=== PATIENT | male | born 1940 | race Caucasian/White ===

== ENCOUNTER → 2018-07-03 | Day surgery (SDC) | payer OTHER ==
[~2018-07-03] MED LIST: ADULT LOW DOSE81 MG PO; APAP650 PO; ASPIR 8181 MG PO; AUGMENTIN 875875 MG PO; CENTRUM SILVER1 EAC4 PO; CIPROFLOXACIN500 M1 PO; DIABETA 5MG TABL5 MG PO; FIBER GUMMIES2.5 GM PO; FISH OIL 1,0001 EAC8 PO; FISH OIL 1,001000 M2 PO; GLIPIZIDE ER5 MG PO; GLUCOTROL5 MG PO; HYDROCHLOROTH12.5 M1 PO; LISINOPRIL-HCT1 EACH PO; LISINOPRIL10 MG PO; METFORMIN HCL500 MG PO; MOBIC15 MG PO; NEURONTIN300 MG PO; NORCO 5-325 TA1 EACH PO; OCUVITE TABLET1 EAC1 PO; PRADAXA150 MG PO; SIMVASTATIN40 MG PO; TAMSULOSIN HCL0.4 MG PO; TOPROL XL100 MG PO; TRANSDERM-SCO1 PATC1 TD
--- NOTE | ~2018-07-03 | PROC ---
[address] [address] PROCEDURE REPORT Name: SAMARIA DONALD Room: [facility]#: [id number] Admission: 07/03/18 Attend Phys: Sheldon Gautam DO Discharge: Date of : 42 Report #: [id number] THIS REPORT FOR: //name// For GI report, please see the Provation report in Perceptive 7 content. By: 0636Medical Records Staff [facility] /DARRELL
[2018-07-03 08:17] LABS: HEMATOCRIT 45.5 % (42.0-52.0); HEMOGLOBIN 15.1 gm/dL (14.0-18.0); MCH 30.1 pg (26.0-34.0); MCHC 33.2 g/dL (28.0-37.0); MCV 90.5 fL (80.0-100.0); MPV 7.8 fl. (7.2-11.1); RBC 5.03 mil/uL (4.50-6.00); RDW-CV 13.1 % (10.5-14.5); WBC 7.5 thou/uL (4.0-11.0)
[2018-07-03 08:30] LABS: ALBUMIN 3.7 g/dL (3.4-5.0); CALCIUM 9.3 mg/dL (8.5-10.1); CREATININE 1.1 mg/dL (0.6-1.3); POTASSIUM 4.2 mmol/L (3.5-5.1); TOTAL BILIRUBIN 0.6 mg/dL (<0.1-1.0); TOTAL PROTEIN 7.6 g/dL (6.4-8.2)
--- NOTE | 2018-07-03 15:35 | EKG ---
[place] [address] ELECTROCARDIOGRAM REPORT Name: SAMARIA DONALD Room: [facility]#: [id number] Admission: 07/03/18 Attend Phys: Sheldon Gautam DO Discharge: Date of : 42 Report #: [id number] THIS REPORT FOR: //name// [facility] Test Date: 2018-07-03 Test Time: 08:34:10 Pat Name: SAMARIA DONALD Department: Room: Gender: M Funeral Assistant: : 1940 Requested By: Sheldon Gautam Order Number: [id number] Brad MD: Mandeep Wilson Measurements Intervals [place] Rate: 75 P: 17 ID: [id number] QRS: -68 QRSD: 124 T: 72 QT: 398 QTc: 445 Interpretive Statements Atrial-sensed ventricular-paced rhythm No further analysis attempted due to paced rhythm Compared to ECG 05/22/2014 13:56:08 Atrial-paced complex(es) or rhythm no longer present ventricular paced beats noted Electronically Signed On 07-03-2018 15:35:33 CDT by Mandeep Wilson [email or web address] <ELECTRONICALLY SIGNED> By: Mandeep Wilson MD, FACC 07/03/18 1535 0834 0834 Mandeep Wilson MD, [facility] /EPI
--- NOTE | 2018-07-08 11:06 | PATH ---
[facility] [address] [place] [address] PATHOLOGY RPT PROCEDURE Name: SAMARIA DONALD Room: [facility] Jorge.#: [id number] Admission: 07/03/18 Date of : 42 Discharge: Report #: [id number] Path Case #: [id number] [facility] Accession Number: [id number] . 01 Material submitted: . PART A: CECUM POLYPS PART B: DISTAL TRANSVERSE COLON POLYP . 01 Clinical history: . Personal hx colon polyps . 02 Diagnosis: A. Cecum polyps: - Two tubular adenomas, negative for high grade dysplasia. . B. Transverse (distal) colon polyp: - Tubular adenoma, negative for high grade dysplasia. (ELBA/db; 07/05/2018) LBQ/07/08/2018 . 02 Electronically signed: . Sourav Negron MD, Pathologist NPI- [id number] . 01 Gross description: . A. Received in formalin labeled "Samaria Donald, cecum polyps," are two segments of pale wilson soft tissue measuring 0.3 x 0.3 x 0.2 cm and 0.4 x 0.2 x 0.2 cm in greatest dimensions. The specimen is submitted entirely in cassette A1. . B. Received in formalin labeled "Samaria Donald, transverse colon polyp," is a segment of wilson-brown soft tissue measuring 0.5 x 0.4 x 0.3 cm in greatest dimensions admixed with yellow-green possible vegetative material. The surgical margin is inked, and the specimen is bisected and submitted entirely in cassette B1. (DAC; 07/04/2018) XDC/XDC . 02 Pathologist provided ICD-10: D12.0, D12.3 . 02 CPT . 282986, 808300 Specimen Comment: A courtesy copy of this report has been sent to Specimen Comment: [phone], . Specimen Comment: Report sent to / DR CLARK Performed at: [address] [place] [address] PATHOLOGY RPT PROCEDURE Name: SAMARIA DONALD Room: [facility]#: [id number] Admission: 07/03/18 Date of : 42 Discharge: Report #: [id number] Path Case #: [id number] [address] [facility] [address], [place] [id number] MD Apolinar Santo MD Phone: [phone] Performed at: 02 [facility] [address], [place], [place] [id number] MD Sourav Negron MD Phone: [phone]
== END | disposition home or self-care (01) ==
LOC: M.SUR 06:31
PROVIDERS: Internal Medicine Gastroenterology
DX: Z12.11 Encounter for screening for malignant neoplasm of colon (principal); Z86.010 Personal history of colon polyps; D12.0 Benign neoplasm of cecum; D12.3 Benign neoplasm of transverse colon; K57.30 Diverticulosis of large intestine without perforation or abscess without bleeding; K64.8 Other hemorrhoids; I10 Essential (primary) hypertension; I48.91 Unspecified atrial fibrillation; E11.9 Type 2 diabetes mellitus without complications; I25.10 Atherosclerotic heart disease of native coronary artery without angina pectoris; E78.5 Hyperlipidemia, unspecified; K21.9 Gastro-esophageal reflux disease without esophagitis; E66.09 Other obesity due to excess calories; Z95.0 Presence of cardiac pacemaker; Z88.8 Allergy status to other drugs, medicaments and biological substances; Z86.73 Personal history of transient ischemic attack (TIA), and cerebral infarction without residual deficits; Z87.442 Personal history of urinary calculi; Z79.01 Long term (current) use of anticoagulants

== ENCOUNTER → 2019-06-19 | Outpatient (CLI) | payer MEDICARE ==
[~2019-06-19] MED LIST changes: +ACTOS 30 MG TAB30 M1 PO; +B COMPLEX1 EACH PO; +GLIPIZIDE 10 MG10 MG PO
== END ==
LOC: M.CT 10:00
DX: M19.011 Primary osteoarthritis, right shoulder (principal); M25.411 Effusion, right shoulder

== ENCOUNTER 2019-06-30 06:26 | Observation (INO) | payer MEDICARE ==
[2019-06-19 08:54] LABS: ABSOLUTE EOSINOPHILS 0.1 thou/uL (0.0-0.7); ABSOLUTE LYMPHOCYTES 2.3 thou/uL (0.8-5.3); ABSOLUTE MONOCYTES 0.4 thou/uL (0.0-1.2); BASOPHILS 0.5 %; EOSINOPHILS 1.5 %; HEMATOCRIT 41.7 % (42.0-52.0); HEMOGLOBIN 14.3 gm/dL (14.0-18.0); MCH 30.6 pg (26.0-34.0); MCHC 34.3 g/dL (28.0-37.0); MCV 89.1 fL (80.0-100.0); MONOCYTES 7.7 %; MPV 7.6 fl. (7.2-11.1); NUCLEATED RBCS 0 /100WBC; PLATELET COUNT* 192 thou/uL (150-400); POLYS 51.3 %; RBC 4.68 mil/uL (4.50-6.00); RDW-CV 13.3 % (10.5-14.5); WBC 5.8 thou/uL (4.0-11.0)
[2019-06-19 09:02] LABS: APTT 44.6 Seconds (25.0-31.3); INR 1.2; PROTIME 12.7 Seconds (9.20-11.50)
[2019-06-19 09:06] LABS: ALBUMIN 3.9 g/dL (3.4-5.0); CALCIUM 9.2 mg/dL (8.5-10.1); CREATININE 1.2 mg/dL (0.6-1.3); POTASSIUM 3.8 mmol/L (3.5-5.1); TOTAL BILIRUBIN 0.5 mg/dL (<0.1-1.0); TOTAL PROTEIN 7.6 g/dL (6.4-8.2)
[2019-06-19 10:57] LABS: ESR (SEDRATE) 10 mm/hr (0-20)
[~2019-06-30] VITALS: Ht 170.2 cm; Wt 106.6 kg
--- NOTE | ~2019-06-30 | OP ---
[address] [address] OPERATIVE REPORT Name: SAMARIA DONALD Room: [address] Harjeet Vasquez#: [id number] Admission: 06/30/19 Attend Phys: Angelica Freed Discharge: Date of : 42 Report #: [id number] THIS REPORT FOR: //name// cc: Rico Saul MD, Ryan L. MD ~ THIS REPORT FOR: //name// CC: Rolf Marie DICTATED BY: Tyrone Barriga DO DATE OF SERVICE: 06/30/2019 PREOPERATIVE DIAGNOSIS: Right shoulder advanced glenohumeral degenerative joint disease. POSTOPERATIVE DIAGNOSIS: Right shoulder advanced glenohumeral degenerative joint disease. SURGERY PERFORMED: Right anatomic total shoulder arthroplasty. SURGEON: Rolf Groves DO. PRECISION MILLWRIGHT: Tyrone Barriga DO. SECOND PREP MANAGER: Heron Paz DO. ANESTHESIA: General with interscalene block. ESTIMATED BLOOD LOSS: 300 mL. COMPLICATIONS: None. CONDITION: Stable to PACU. ORTHOPEDIC IMPLANTS: Biomet anatomic total shoulder system was utilized with the following components: 1. A 13-mm mini humeral stem. 2. Size medium hybrid glenoid base with a porous titanium glenoid post. 3. A 46-mm modular variable offset head. INDICATIONS FOR PROCEDURE: The patient is a pleasant 79-year-old male who has been followed [facility] regarding longstanding right shoulder pain. X-rays have been consistent with a diagnosis of primary glenohumeral [address] [place] [address] OPERATIVE REPORT Name: SAMARIA DONALD Radha Room: [address] Pedro#: [id number] Admission: 06/30/19 Attend Phys: Angelica Freed Discharge: Date of : 42 Report #: [id number] arthritis. He has tried and failed conservative care consisting of NSAIDs, corticosteroids, activity modifications and home exercises. He has had continued symptoms that have adversely affected his quality of life. We discussed further treatment including total shoulder replacement. Risks, benefits, complications and alternatives were discussed with the patient about that procedure in detail. Risks include but are not limited to bleeding, DVT/PE, infection, instability/dislocation, periprosthetic fracture, continued shoulder pain, need for repeat surgery, complication with anesthesia and even . The patient expressed understanding and wished to proceed. DESCRIPTION OF PROCEDURE: The patient was transferred to the operating suite and placed on the operating table. He was given the benefit of general anesthesia. He was then placed into beach chair position and the right shoulder and upper extremity were prepped and draped in the usual sterile fashion. A timeout was taken to confirm the appropriate patient identification, operative site and procedure to be performed. All in the room were in agreement with time-out. Procedure began by performing a skin incision overlying the deltopectoral interval. The dissection was then carried down with electrocautery for hemostasis. The cephalic vein was identified and thus our appropriate interval between the deltoid and the pectoralis major. Blunt dissection was used to dissect and lyse adhesions in the subdeltoid space. Retractors were then placed under the deltoid and over the conjoined tendon. Care was taken to retract aggressively to protect neurovascular structures. The bicipital groove was then identified and was followed into the glenohumeral joint. We then used electrocautery to perform a subscapularis tenotomy while leaving a 1 cm cuff of tissue attached to the lesser tuberosity for later repair. The humerus was then externally rotated while the subscapularis tendon was released in a subperiosteal fashion off the medial humerus. There was noted to be a large osteophyte off the inferior aspect of the humeral head. Further releases were performed until the humeral head was exposed and the shoulder was dislocated. We then marked our appropriate entry point at the proximal aspect of the humerus into the humeral canal. The humeral canal was then sequentially reamed to appropriate size. Off the final reamer, the cutting block was pinned into place at 45 degrees of inclination and 40 degrees of retroversion. The cutting block was pinned into position and the humeral cut was performed through the cutting block. The humeral canal was then further prepared by sequentially broaching to the appropriate size humeral stem. Final 13 mm stem was then impacted. Attention was then addressed to the glenoid where further releases and soft tissue debridement were performed to allow for adequate exposure of the glenoid. The remainder of the biceps stump and the glenoid labrum were debrided. The glenoid was then marked for appropriate entry point for our guidepin. The guidepin was then inserted through the glenoid guide to the appropriate depth. The glenoid was then reamed and drilled over the guidepin. The [address] [address] OPERATIVE REPORT Name: SAMARIA DONALD Room: [address] Harjeet Vasquez#: [id number] Admission: 06/30/19 Attend Phys: Erick VasquezAngelica Ram Discharge: Date of : 42 Report #: [id number] trial baseplate was then placed and peg holes were drilled. Trial glenoid was then inserted and was found to fit nicely and flushed on the glenoid. At this point, the cement was then prepared on the back table, our pegs were cemented and cement was also applied to the backside of the final glenoid implant. The final glenoid implant was then malleted into position and held with compression while the cement hardened. Attention was then addressed back to the humerus where the humerus was exposed and the trial humeral head was placed. Trial reduction was performed. The shoulder was taken through range of motion with the trial humeral head in place, there was noted to be appropriate tensioning on our soft tissue structures including the conjoined tendon. There was appropriate excursion of the humeral head on the glenoid. The patient demonstrated good range of motion. The final humeral head was then impacted into position. Topical vancomycin powder was applied and the shoulder was thoroughly irrigated. Final reduction was performed. The shoulder was again taken through range of motion and was found to be stable with appropriate excursion of the humerus within the glenoid. There was also appropriate tensioning on the soft tissues including the conjoined tendon. Topical TXA was applied and allowed to set for 5 minutes. The subscapularis tendon was then repaired using #2 FiberWire in a [id number] interrupted fashion. The medial portion of the tendon was sewed down to the intact cuff of tissue remaining on the lesser tuberosity to its anatomic location. Once multiple stitches with the #[address], it was then oversewn using a running #1 Vicryl. The deltopectoral fascia was then closed using interrupted [id number] suture, #1 Vicryl. The subcutaneous tissue was then closed using 2-0 Monocryl in inverted fashion. Final skin closure was performed using a running subcuticular 3-0 Stratafix followed by skin glue. Sterile dressings were applied and the patient was placed into a slingshot immobilizer. At the end of the procedure, needle and sponge counts were correct x 2. The patient was transferred to PACU in stable condition. ATTESTATION: Dr. Groves was present and scrubbed in through the entirety of the procedure. By: [id number] Groves DO /emerald
[2019-06-30 07:26] LABS: INR 1.1; PROTIME 10.9 Seconds (9.20-11.50)
[2019-06-30 17:30] VITALS: BP 133/73
--- NOTE | 2019-06-30 18:29 | NUR ---
PATIENT ADMITTED TO ROOM 315 FROM PACU. RIGHT SHOULDER DRESSING INTACT, ICE PACK IN PLACE AND RIGHT UE IMMOBILIZER IN PLACE. PATIENT DID HAVE AN INTERSCALING BLOCK TO RIGHT SHOULDER, PATIENT STATED HE HAD NO FEELING AT THIS TIME EXCEPT FOR THUMB. PATIENT ABLE TO MOVE FINGERS AND HAND, GOOD CAP REFILL. IV SL, SCHED ABX INFUSING. [address], VITALS STABLE CHARTED. PATIENT TO BRING HOME PRADAXA AND PATIENT TO START TONIGHT ORDERED BY DR. BAIG. SCD'S IN PLACE. PATIENT HAS NOT YET VOIDED. CALL LIGHT WITHIN REACH, WILL CONTINUE TO MONITOR.
[2019-06-30 23:56] VITALS: BP 152/86
[2019-07-01 04:30] VITALS: BP 116/62
[2019-07-01 05:43] LABS: HEMATOCRIT 37.2 % (42.0-52.0); HEMOGLOBIN 12.6 gm/dL (14.0-18.0); MCH 30.4 pg (26.0-34.0); MCHC 33.9 g/dL (28.0-37.0); MCV 89.6 fL (80.0-100.0); MPV 7.7 fl. (7.2-11.1); RBC 4.15 mil/uL (4.50-6.00); RDW-CV 13.3 % (10.5-14.5); WBC 11.6 thou/uL (4.0-11.0)
[2019-07-01 06:02] LABS: ALBUMIN 3.2 g/dL (3.4-5.0); CALCIUM 8.2 mg/dL (8.5-10.1); CREATININE 1.3 mg/dL (0.6-1.3); POTASSIUM 4.3 mmol/L (3.5-5.1); TOTAL BILIRUBIN 0.5 mg/dL (<0.1-1.0); TOTAL PROTEIN 6.6 g/dL (6.4-8.2)
--- NOTE | 2019-07-01 06:22 | NUR ---
PT SLEPT OFF AND ON OVERNIGHT. R ARM IMMOBILIZER ON, FINGERS PINK WARM WITH BRISK CAP REFILL. CONT PULSE OX OVERNIGHT, O2 3L SAT 97%. LFA SL, ABX GIVEN ORDERED. UP WITH ASSIST TO BR TO VOID AT HS, USING URINAL WITHOUT DIFFICULTY OVERNIGHT. SCDS ON. AM LABS, ICE PACK TO SHOULDER PRN. AOX4, ABLE TO USE CALL LITE AND MAKE NEEDS KNOWN.HOPEFUL FOR DISCHARGE HOME TODAY.
[2019-07-01 07:30] VITALS: BP 133/78
[2019-07-01 11:34] VITALS: BP 133/78
--- NOTE | 2019-07-01 12:00 | NUR ---
PT.TO DISCHARGE HOME TODAY. [facility] CALLED AND SPOKE WITH PT.ON PHONE IN HIS ROOM. HE SEEMED ALERT AND ORIENTED. HE SAID HE LIVES WITH HIS . SHE CAN HELP HIM AT HOME IF NEEDED. SHE DRIVES AND WILL BE COMING TO PICK HIM UP AFTER LUNCH. HE SAID HE IS NORMALLY INDEPENDENT AT HOME. NO USE OF DME BUT HAS CANES,WALKER AND A WC IF NEEDED. EXPLAINED TO FOLLOW UP WITH IN 2 WEEKS. HIS OFFICE WITH SET UP PHYSICAL THERAPY FOR HIM AT THAT APPT. HE SAID HE WOULD LIKE TO DO HOME HEALTH THERAPY. HE HAS USED [facility] IN THE PAST AND WOULD USE THEM AGAIN. EXPLAINED NURSING WOULD GO OVER HIS DISCHARGE INSTRUCTIONS PRIOR TO HIM GOING HOME TODAY. HE HAD NO QUESTIONS.
[2019-07-01] MEDS ORDERED: OXYCODONE HCL 55 MG PO (12:15)
[2019-07-01 12:16] VITALS: BP 133/78
--- NOTE | 2019-07-01 13:34 | NUR ---
PATIENT DISCHARGED TO HOME THIS AFTERNOON. PATIENT DID WELL WITH PT AND OT. PAIN CONTROLLED WITH SCHED TYLENOL AND OXY IR PRN. UP AD LIDIA. NWB ON RIGHT U. IMMOBILIZER IN PLACE, SKIN CHECKED. DRESSING TO RIGHT SHOULDER REMAINS C/D/I. VERBALIZES UNDERSTANDING OF PAPERWORK AND SCRIPT. PATIENT TAKEN OUT VIA WHEELCHAIR WITH ALL BELONGINGS.
== END 2019-07-01 13:15 | disposition home or self-care (01) ==
LOC: M.ORTHSURG → M.TBA 06:40 → M.3W 06:40 → M.ORTHSURG 08:37 → M.3W 17:12
PROVIDERS: Orthopaedic Surgery; ADMIT Internal Medicine
DX: M19.011 Primary osteoarthritis, right shoulder (principal); R51 Headache; N39.0 Urinary tract infection, site not specified; N20.0 Calculus of kidney